=== PATIENT | male | born 1985 | race Two or more races ===

== ENCOUNTER 2024-06-25 20:24 | Emergency (ER) | payer MEDICAID, OTHER ==
[~2024-06-25] VITALS: Ht 180.3 cm; Wt 102.5 kg
[2024-06-25 20:36] VITALS: BP 123/82; PULSE 76; RESP 20; O2SAT 98
--- NOTE | 2024-06-25 21:11 | ED.PDOC ---
GI ASSESSMENT HPI Comments 38y M who presents to the ED for chief complaint of abdominal pain. Pt states he has been having epigastric abdominal pain for the past6 months but states the pain has exacerbated and become sharp in nature over the past 3 weeks. Pt states the pain is non-radiating, intermittent, with no associated exacerbating or relieving factors. Pt has associated nausea and vomiting with constipation but otherwise denies fever, diarrhea, headache, dizziness, dysuria or hematuria. Pt denies any recent sick contacts or any recent changes to diet. Pt vitals otherwise stable in the ED. Pt otherwise denies any other symptoms at this time. Chief Complaint: Abdominal Pain Time Seen by MD: 21:06 Reviewed Notes: Medications Allergies: Coded Allergies: NO KNOWN ALLERGIES (Unverified , 06/25/24) Information Source: Patient Mode of Arrival: Ambulatory Brought in by: self Past Medical History PAST MEDICAL HISTORY: Denies Surgical History: Denies all surgeries Family History Family History: Unknown Social History Smoker: Non-Smoker Alcohol: Denies ETOH Use Drugs: Denies Drug Use Lives In: Home Constitutional: denies: chills, diaphoresis, fatigue, fever, malaise, sweats, weakness, others EENTM: denies: blurred vision, double vision, ear bleeding, ear discharge, ear drainage, ear pain, ear ringing, eye pain, eye redness, hearing loss, mouth pain, mouth swelling, nasal discharge, nose bleeding, nose congestion, nose pain, photophobia, tearing, throat pain, throat swelling, voice changes, others Respiratory: denies: cough, hemoptysis, orthopnea, SOB at rest, shortness of breath, SOB with excertion, stridor, wheezing, others Cardiovascular: denies: chest pain, dizzy spells, diaphoresis, Dyspnea on exertion, edema, irregular heart beat, left arm pain, lightheadedness, palpitations, PND, syncope, others Gastrointestinal: reports: abdominal pain, constipated, nausea, vomiting; denies: abdomen distended, blood streaked bowels, diarrhea, dysphagia, diffi culty swallowing, hematemesis, melena, poor appetite, poor fluid intake, rectal bleeding, rectal pain, others Genitourinary: denies: burning, dysuria, flank pain, frequency, hematuria, incontinence, penile discharge, penile sore, pain, testicle pain, testicle swelling, urgency, others Neurological: denies: dizziness, fainting, headache, left sided numbness, left sided weakness, numbness, paresthesia, pre-existing deficit, right sided numbness, right sided weakness, seizure, speech problems, tingling, tremors, weakness, others Musculoskeletal: denies: back pain, gout, joint pain, joint swelling, muscle pain, muscle stiffness, neck pain, others Integumetry: denies: bruises, change in color, change in hair/nails, dryness, laceration, lesions, lumps, rash, wounds, others Allergic/Immunocompromised: denies: Difficulty Healing, Frequent Infections, Hives, Itching, others Hematologic/Lymphatic: denies: anemia, blood clots, easy bleeding, easy bruising, swollen glands, others Endocrine: denies: excessive hunger, excessive sweating, excessive thirst, excessive urination, flushing, intolerance to cold, intolerance to heat, unexplained weight gain, unexplained weight loss, others Psychiatric: denies: anxiety, bipolar disorder, depression, hopeless, panic disorder, schizophrenia, sleepless, suicidal, others All Other Systems: Reviewed and Negative Physical Exam General Appearance: No Apparent Distress, Normal HEENT: Normal ENT Inspection, Pharynx Normal, TMs Normal Neck: Full Range of Motion, Non-Tender, Normal, Normal Inspection Respiratory: Chest Non-Tender, Lungs Clear, No Accessory Muscle Use, No Respir atory Distress, Normal Breath Sounds Cardiovascular: No Edema, No JVD, No Murmur, No Gallop, Normal Peripheral Pulses, Regular Rate/Rhythm Breast Exam: Deferred Gastrointestinal: Epigastric (tenderness to palpation, ) Genitalia: Deferred Pelvic: Deferred Rectal: Deferred Extremities: No calf tenderness, Normal capillary refill, Normal inspection, Normal range of motion, Non-tender, No pedal edema Musculoskeletal : Apperance: Normal Neurologic: Alert, arc trimmer II-XII nml as Tested, No Motor Deficits, Normal Affect, Normal Mood, No Sensory Deficits Cerebellar Function: Normal Reflexes: Normal Skin: Dry, Normal Color, Warm Lymphatic: No Adenopathy Was a procedure done? Was a procedure done?: No GI differential Dx Differential Diagnosis: Cholangitis, Cholecystitis, Constipation, Esophagitis, Gastritis/PUD, Gastroenteritis, GI hemorrhage, Hernia, Hepatitis, Pancreatitis, UTI, Urolithiasis, Dehydration, Diabetes/ DKA, Electrolyte Imbalance, Food Poisoning, Bacterial, Parasitic, Viral, Hypovolemia, Impaction, Mass, Stress Ulcer Other Differential Diagnosis colitis, enteritis, biliary colic, gallstones X-Ray, Labs, Meds, VS Vital Signs Date Time Temp Pulse Resp B/P (MAP) Pulse Ox O2 Delivery O2 Flow Rate FiO2 06/25/24 20:36 97.5 76 20 123/82 (96) 98 Lab Test 06/25/24 21:07 Range/Units White Blood Count 12.0 H 4.4-10.8 10^3/uL Red Blood Count 4.64 4.5-5.90 10^6/uL Hemoglobin 15.2 13.5-17.5 g/dL Hematocrit 43.8 41.0-53.0 % Mean Corpuscular Volume 94.3 80.0-100.0 fL Mean Corpuscular Hemoglobin 32.7 H 28.0-32.0 pg Mean Corpuscular Hemoglobin Concent 34.7 32.0-36.0 g/dL Red Cell Distribution Width 13.1 11.8-14.3 % Platelet Count 385 140-450 10^3/uL Mean Platelet Volume 7.9 6.9-10.8 fL Neutrophils (%) (Auto) 77.0 37.0-80.0 % Lymphocytes (%) (Auto) 13.8 10.0-50.0 % Monocytes (%) (Auto) 6.5 0.0-12.0 % Eosinophils (%) (Auto) 1.9 0.0-7.0 % Basophils (%) (Auto) 0.8 0.0-2.0 % Neutrophils # (Auto) 9.2 H 1.6-8.6 10 ^3/uL Lymphocytes # (Auto) 1.7 0.4-5.4 10 ^3/uL Monocytes # (Auto) 0.8 0-1.3 10 ^3/uL Eosinophils # (Auto) 0.2 0-0.8 10 ^3/uL Basophils # (Auto) 0.1 0-0.2 10 ^3/uL Nucleated Red Blood Cells 0.0 % Sodium Level 139 136-145 mmol/L Potassium Level 4.1 3.5-5.1 mmol/L Chloride Level 104 98-107 mmol/L Carbon Dioxide Level 27 20-31 mmol/L Anion Gap 8 5-15 Blood Urea Nitrogen 13 9-23 mg/dL Creatinine 1.03 0.700-1.30 mg/dL Glomerular Filtration Rate Calc 95 >90 mL/min BUN/Creatinine Ratio 12.6 10.0-20.0 Serum Glucose 192 H 74-106 mg/dL Calcium Level 10.0 8.7-10.4 mg/dL Total Bilirubin 1.5 H 0.2-1.0 mg/dL Aspartate Amino Transferase (AST) 134 H 13-40 U/L Alanine Aminotransferase (ALT) 130 H 7-40 U/L Alkaline Phosphatase 88 46-116 U/L Total Protein 8.1 5.7-8.2 g/dL Albumin 4.8 3.2-4.8 g/dL Lipase 61 H 12-53 U/L Time of 1ST Reevaluation: 21:30 Reevaluation 1ST: Unchanged Time of 2ND Reevaluation: 22:05 Reevaluation 2ND: Improved (pt is feeling improved without any treatments) Patient Education/Counseling: Diagnosis, Treatment, Prognosis, Need For Follow Up Family Education/Counseling: Diagnosis, Treatment, Prognosis, Need For Follow Up Additional Information - I reviewed the following notes from patient's past medical encounters: - The following tests were ordered, and results were reviewed by me: (Labs, us, EKG): gallbladder ultrasound, lipase, CBC, CMP - Additional information was gathered from interviewing the following independent Historian: (Family, Other Providers, EMT): none - I reviewed and agreed with the following test results read by other provider: (US): radiologist - I discussed treatments and results with medical personnel and: (consultants, family): none pt has epigastric pain, nausea. gb us show s no abnormalities, lipase is normal. pt does have mild transaminitis and ap, but without acute biliary findings on the US. he is stable to follow up with his PCP Departure 1 Departure Time of Disposition: 22:07 Impression: Primary Impression: Epigastric pain Additional Impression: Transaminitis Disposition: HOME / SELF CARE / HOMELESS Condition: Stable Additional Instructions: follow up with your doctor in 24 hours. feel free to return for any concerns e-Prescriptions Pantoprazole Sodium Sesquihydr (Protonix) 40 Mg Tab 40 MG PO DAILY, #30 TAB Prov: IBIS GARZA MD 06/25/24 Ondansetron Odt 4MG Tab (ZOFRAN PO) 4 Mg Tb 4 MG PO Q6HP PRN for 3 Days, #12 TAB ODT TAB-DISSOLVE IN MOUTH, THEN SWALLOW Prov: IBIS GARZA MD 06/25/24 Discharged With: Self, Spouse Critical Care Note Critical Care Time?: Yes (55 min-critical care time only) Critical care comment: due to concerns for patient's condition worsening, the care required my highest attention and readiness to intervene. i reviewed the medical records, communicated with medical personnel, consultants, ordered the proper tests, treatments, reassessed the response and results. formulated a plan of care . total time does not include any procedures Stability Stability form required: No Heart Score Heart Score: Heart Score Response (Comments) Value History N/A 0 EKG N/A 0 Age N/A 0 Risk Factors N/A 0 Troponin N/A 0 Total 0 I personally scribed for IBIS GARZA MD ([email or web address]) on 06/25/24 at 21:11. Electronically submitted by Umair Patterson ([email or web address]). IBIS GARZA MD Jun 25, 2024 21:11
[2024-06-25 21:29] LABS: Basophils # (auto) 0.1 10 ^3/uL (0-0.2); Basophils % (auto) 0.8 % (0.0-2.0); Eosinophils # (auto) 0.2 10 ^3/uL (0-0.8); Eosinophils % (auto) 1.9 % (0.0-7.0); Hematocrit 43.8 % (41.0-53.0); Hemoglobin 15.2 g/dL (13.5-17.5); Lymphocytes # (auto) 1.7 10 ^3/uL (0.4-5.4); Lymphocytes % (auto) 13.8 % (10.0-50.0); Mean Corpuscular Hemoglobin 32.7 pg (28.0-32.0); Mean Corpuscular Hgb Conc. 34.7 g/dL (32.0-36.0); Mean Corpuscular Volume 94.3 fL (80.0-100.0); Monocytes # (auto) 0.8 10 ^3/uL (0-1.3); Monocytes % (auto) 6.5 % (0.0-12.0); Neutrophils # (auto) 9.2 10 ^3/uL (1.6-8.6); Platelet Count (auto) 385 10^3/uL (140-450); Red Blood Cells 4.64 10^6/uL (4.5-5.90); Red Cell Distribution Width 13.1 % (11.8-14.3)
--- NOTE | 2024-06-25 21:40 | DVH ---
INDICATION: epigastric pain TECHNIQUE: Multiple real-time sonographic images were obtained of the right upper quadrant. COMPARISON: None FINDINGS: The liver demonstrates heterogeneous echotexture without focal mass lesions. The liver bigg sures 15.4 cm. There is no intrahepatic or extrahepatic ductal dilatation. The common duct was not clearly visualiz ed on this examination. No gallstones seen. Gallbladder sludge is seen. The gallbladder wall measures 0.2 cm and is within n ormal limits. The right kidney measures 9.8 cm. The right kidney is normal in contour, size, and shape. The echog enicity is normal. There is no hydronephrosis. The pancreas is not well visualized due to overlying bowel gas. IMPRESSION: 1. No acute findings identified
[2024-06-25 21:51] LABS: Alkaline Phosphatase 88 U/L (46-116); Anion Gap 8 (5-15); BUN/Creatinine Ratio 12.6 (10.0-20.0); Blood Urea Nitrogen 13 mg/dL (9-23); Carbon Dioxide 27 mmol/L (20-31); Chloride 104 mmol/L (98-107); Potassium 4.1 mmol/L (3.5-5.1); Sodium 139 mmol/L (136-145)
[2024-06-25 21:52] LABS: Albumin 4.8 g/dL (3.2-4.8); Total Protein 8.1 g/dL (5.7-8.2)
[2024-06-25 21:59] LABS: Alanine Aminotransferase 130 U/L (7-40); Aspartate Aminotransferase 134 U/L (13-40); Bilirubin, Total 1.5 mg/dL (0.2-1.0); Glucose 192 mg/dL (74-106); Lipase 61 U/L (12-53)
[2024-06-25] MEDS ORDERED: PANT40TA2 PO (22:13)
[2024-06-25] MEDS ORDERED: ZOFR4T PO (22:13)
[2024-06-25] MEDS: MAALOX PLUS or MAALOX 30 ML PO ONE (22:22)
== END 2024-06-25 22:35 | disposition home or self-care (01) ==
LOC: ER 20:24
DX: R74.01 Elevation of levels of liver transaminase levels (principal); R10.13 Epigastric pain; K59.00 Constipation, unspecified
CPT/HCPCS: 36415; 76705; 80053; 83690; 85025